=== PATIENT | male | born 1995 | race Caucasian/White ===

== ENCOUNTER 2020-04-03 20:48 | Emergency (ER) | payer MEDICAID ==
[2020-04-03 21:00] VITALS: BP 120/80
--- NOTE | 2020-04-03 21:07 | ED Physician Documentation ---
PD HPI LOWER EXT INJURY - Stated complaint Stated Complaint: ANKLE INJ RT - Chief complaint Chief Complaint: Ext Problem - History obtained from History obtained from: Patient - History of Present Illness PD HPI LOW EXT INJURY LOCATION: Right, Ankle Type of injury: Twist Timing - onset: Enter time (16:15), Today Timing - details: Abrupt onset Pain level now: 2 Improved by: Rest Worsened by: Moving, Palpating Associated symptoms: Swelling Similar symptoms before: Has not had sx before Recently seen: Not recently seen - Additional information Additional information: c/o right ankle pain, predominantly lateral aspect, sudden onset at 4:15 PM today when he was running and had a misstep resulting in inversion of the right ankle. Review of Systems Musculoskeletal: reports: Joint pain, Joint swelling, Pain with weight bearing Neurologic: denies: Focal weakness, Numbness PD PAST MEDICAL HISTORY - Past Medical History Past Medical History: No - Past Surgical History Past Surgical History: No - Present Medications Home Medications: Ambulatory Orders Medication Instructions Recorded Confirmed No Known Home Medications 04/03/20 04/03/20 - Allergies Allergies/Adverse Reactions: Allergies Allergy/AdvReac Type Severity Reaction Status Date / Time No Known Drug Allergies Allergy Verified 04/03/20 20:56 PD ED PE NORMAL - Vitals Vital signs reviewed: Yes - General General: Alert and oriented X 3, No acute distress, Well developed/nourished - Neuro Neuro: No motor deficit, No sensory deficit PD ED PE EXPANDED - Extremities Extremities: Other (right ankle, lateral aspect has swelling and tenderness with limited plantarflexion due to pain) Results - Vitals Vitals: Vital Signs - 24 hr 04/03/20 04/03/20 20:56 22:33 Temperature 36.6 C 36.6 C Heart Rate 62 63 Respiratory 14 14 Rate Blood Pressure 120/80 120/80 O2 Saturation 98 100 Oxygen O2 Source Room air - Rads (name of study) right ankle xrays Radiology: Prelim report reviewed, See rad report PD MEDICAL DECISION MAKING - ED course Complexity details: reviewed results, re-evaluated patient, considered differential, d/w patient ED course: patient has his own crutches. Declines analgesic in ED as well as rx, will use ibuprofen Departure - Departure Disposition: 01 Home, Self Care Clinical Impression: Right ankle sprain Condition: Good Instructions: ED Sprain Ankle Follow-Up: Winston Uriarte MD [Provider Admit Priv/Credential] - Discharge Date/Time: 04/03/20 22:34
--- NOTE | 2020-04-03 22:10 | XRAY Report ---
PROCEDURE: Ankle 3 View RT INDICATIONS: injury, pain, tenderness TECHNIQUE: 3 views of the ankle were acquired. COMPARISON: None. FINDINGS: Bones: No acute fractures or dislocations. Ankle mortise is normally aligned. No suspicious bony l esions. Soft tissues: Soft tissue edema is seen surrounding the ankle that is more prominent over the lateral malleolus. IMPRESSION: No acute osseous abnormality. Nonspecific soft tissue edema is seen over the lateral mal leolus. If symptoms persist with conservative management, further evaluation with CT or MRI may be ob tained. Reviewed by: Juan Jason MD on 04/03/2020 10:09 PM [facility] Approved by: Juan Jason MD on 04/03/2020 10:09 PM [facility] Station ID: [id number]
== END 2020-04-03 22:34 | disposition home or self-care (01) ==
LOC: ED 20:48
DX: S93.401A Sprain of unspecified ligament of right ankle, initial encounter (principal); X50.1XXA Overexertion from prolonged static or awkward postures, initial encounter; Y93.02 Activity, running
CPT/HCPCS: 99282; 99283